=== PATIENT | female | born 1995 | race Caucasian/White ===

== ENCOUNTER 2021-03-26 15:20 | Emergency (ER) | payer BC ==
[2021-03-26 16:19] VITALS: BP 129/86; PULSE 104
[2021-03-26 18:33] LABS: CORONAVIRUS COVID-19 NAA POSITIVE (NEGATIVE)
== END 2021-03-26 18:28 | disposition left against medical advice (07) ==
LOC: JD.ED 15:20
DX: U07.1 COVID-19 (principal); E78.00 Pure hypercholesterolemia, unspecified; E66.9 Obesity, unspecified; Z68.44 Body mass index [BMI] 60.0-69.9, adult
CPT/HCPCS: 0240U; 99283